=== PATIENT | male | born 1990 | race Caucasian/White ===

== ENCOUNTER → 2022-01-21 08:15 | Outpatient (CLI) | payer BC, SELFPAY ==
--- NOTE | ~2022-01-21 | US_ITS ---
EXAMINATION: US soft tissue head and neck DATE: 01/21/2022 08:34 INDICATION: Neck lump. TECHNIQUE: Multiple grayscale and Doppler ultrasound images of the neck were obtained. COMPARISON: None FINDINGS: There are normal lymph nodes in the neck bilaterally. IMPRESSION: 1. No abnormal neck mass or lymphadenopathy. Reviewed, dictated and finalized at location A. TER HAND
--- NOTE | ~2022-01-21 | XR_ITS ---
XR soft tissue neck 01/21/2022 08:40 Indication: Feels like there is a lump in the neck for 3 weeks. Procedure: 2 views of the neck soft tissues Comparison: No prior studies for comparison. Findings: Prevertebral soft tissues are normal. Epiglottis and area epiglottic folds are within maribeth l limits. No subglottic narrowing. Lung apices are unremarkable. No significant abnormality of the ce rvical spine. Impression: 1: No significant abnormality of the neck soft tissues identified. Reviewed, dictated and finalized at location A. CH OPERATIONS SPECIALIST Impression: 1: No significant abnormality of the neck soft tissues identified.
== END ==
PROVIDERS: PCP Nurse Practitioner Family; Visit Provider Nurse Practitioner Family
DX: R20.2 Paresthesia of skin (principal)
CPT/HCPCS: 70360; 76536

== ENCOUNTER → 2022-01-25 15:20 | Outpatient (CLI) | payer BC, SELFPAY ==
--- NOTE | ~2022-01-25 | US_ITS ---
Thyroid ultrasound. Clinical History: Neck fullness Findings: Real-time sonography of the thyroid gland was performed. The right lobe measures 6.5 x 2.0 x 1.4 cm. The left lobe measures 5.7 x 1.9 x 1.7 cm. The isthmus is 1-2 mm in AP diameter. Thyroid parenchyma is homogeneous. No thyroid nodule seen. Impression: Unremarkable exam. Reviewed, dictated and finalized at location [] CONNECTOR Impression: Unremarkable exam.
== END ==
PROVIDERS: PCP Nurse Practitioner Family; Visit Provider Nurse Practitioner Family
DX: R22.1 Localized swelling, mass and lump, neck (principal)
CPT/HCPCS: 76536

== ENCOUNTER 2022-01-28 01:00 | Observation (INO) | payer BC, SELFPAY ==
[2022-01-28] VITALS (47 sets, daily range): BP systolic 121–168; BP diastolic 56–98; PULSE 60–90; RESP 4–21; TEMP 36.3; O2SAT 94–100; BMI 28.5
--- NOTE | 2022-01-28 | ECHO_ITS ---
Patient Info Name: Austin Nesbitt Age: 31 years : 1990 Gender: Male Ht: 73 in Wt: 215 lbs BSA: 2.26 m2 HR: 75 bpm BP: 168 / 71 mmHg Heart Rhythm: Sinus Rhythm Technical Quality: Good Exam Date: 01/28/2022 8:07 AM Exam Location: [facility] Patient Status: Outpatient Admit Date: 01/28/2022 Staff Ordering Physician: Tiffanie Cannon MD Acls Specialist: Jacquelyn Painter RDCS Attending Provider: Jackelin Posadas DO Referring Physician: Davis BARRETO; Exam Type: CA echo doppler color flow Study Info Indications - elevated troponin Complete two-dimensional, color flow and Doppler transthoracic echocardiogram is performed. Summary 1. Complete two-dimensional, color flow and Doppler transthoracic echocardiogram is performed. 2. Unremarkable 2D/Doppler echocardiogram. Left Ventricle Left ventricular chamber dimension is normal. Left ventricular systolic function is normal, estimated at 65-70%. The left ventricular diastolic function is normal. Right Ventricle Right ventricular chamber dimension is normal. Left Atria Left atrial chamber dimension is normal. Right Atria Right atrial chamber dimension is normal. Aortic Valve The aortic valve is normal. Pulmonic Valve The pulmonic valve is normal. Mitral Valve The mitral valve has normal leaflets. Tricuspid Valve The tricuspid valve leaflets are normal. Pericardium/Pleural The pericardium appears normal. Aorta The aortic root size at the sinus of Valsalva is normal. Left Ventricular Outflow Tract Name Value Normal LVOT 2D LVOT Diameter 2.1 cm LVOT Doppler LVOT Peak Gradient 5 mmHg LVOT Mean Gradient 2 mmHg LVOT VTI 19 cm LVOT VTI/AV VTI Ratio 0.7 LVOT Stroke Volume 62 ml LVOT CO 4.3 l/min LVOT CI 1.9 l/min/m2 Pulmonic Valve Name Value Normal RVOT Doppler RVOT Peak Gradient 3 mmHg PV Doppler PV Peak Gradient 8 mmHg Mitral Valve Name Value Normal MV Doppler MV Decel Banner 629 cm/s2 MV PHT 52 ms MV Area (PHT) 4.2 cm2 4.0-5.0 MV Diastolic Function MV E Peak Velocity 113 cm/s MV
--- NOTE | ~2022-01-28 | CT_ITS ---
Clinical Indication: Pulmonary embolus, chest pain CT Scan of the Chest with Contrast: Technique: Contiguous sections were acquired throughout the chest after intravenous administration of 100 cc of Omnipaque 350. Dose reduction technique was used on this scan by utilizing automated expos ure control and iterative reconstruction technique. The dose-length product (DLP) was 580.08 mGy-cm. Findings: There are probable mildly enlarged subcarinal, AP window, and left hilar lymph nodes, nonspecific.. T here is no filling defect in the pulmonary arterial tree to suggest pulmonary embolus. There is no ev idence of aortic dissection or aneurysm. There is no evidence of pleural or pericardial effusion. The lungs are clear. No pulmonary nodules or infiltrates are noted. Images through the upper abdomen reveal no abnormalities. Impression: No evidence of pulmonary embolus, aortic dissection, or aortic aneurysm. Clear lungs. Mildly prominent subcarinal, AP window, and left hilar lymph nodes, nonspecific, and of uncertain cli nical significance. These could reflect inflammatory/reactive lymph nodes. Reviewed, dictated and finalized at location [] [facility] Impression: No evidence of pulmonary embolus, aortic dissection, or aortic aneurysm. Clear lungs. Mildly prominent subcarinal, AP window, and left hilar lymph nodes, nonspecific , and of uncertain clinical significance. These could reflect inflammatory/reac tive lymph nodes.
--- NOTE | 2022-01-28 01:05 | ECG_ITS ---
Measurements Intervals [place] Rate: 62 P: 52 KS: 221 QRS: 83 QRSD: 114 T: 27 QT: 399 QTc: 407 Interpretive Statements SINUS RHYTHM WITH FIRST DEGREE AV BLOCK POSSIBLE RIGHT VENTRICULAR CONDUCTION DELAY [RSR (QR) IN V1/V2] BORDERLINE ECG NO PREVIOUS ECG AVAILABLE FOR COMPARISON Electronically Signed On 01-31-2022 17:16:40 QUALITY CONTROL MICROBIOLOGY SUPERVISOR by Ozzy Quintanilla M.D.
--- NOTE | 2022-01-28 01:05 | ECG_ITS ---
Measurements Intervals [place] Rate: 65 P: 78 VT: 227 QRS: 79 QRSD: 117 T: 27 QT: 413 QTc: 430 Interpretive Statements SINUS RHYTHM WITH FIRST DEGREE AV BLOCK POSSIBLE LEFT ATRIAL ENLARGEMENT [-0.1mV P WAVE IN V1/V2] INCOMPLETE RIGHT BUNDLE BRANCH BLOCK [90+ ms QRS DURATION, TERMINAL R IN V1/V2, 40+ ms S IN I/aVL/V4/V5/V6] COMPARED TO ECG 01/28/2022 01:05:03 NO SIGNIFICANT CHANGES Electronically Signed On 02-01-2022 15:28:15 PROGRAMMER ANALYST by Darcy Briseno M.D.
--- NOTE | 2022-01-28 01:29 | ECG_ITS ---
Measurements Intervals [place] Rate: 71 P: 59 NE: 219 QRS: 80 QRSD: 121 T: 15 QT: 397 QTc: 432 Interpretive Statements SINUS RHYTHM WITH FIRST DEGREE AV BLOCK POSSIBLE RIGHT VENTRICULAR CONDUCTION DELAY [RSR (QR) IN V1/V2] NONSPECIFIC T-WAVE ABNORMALITY ABNORMAL ECG COMPARED TO ECG 01/28/2022 01:05:03 NO SIGNIFICANT CHANGES Electronically Signed On 02-01-2022 15:28:06 YOUTH CAREER SPECIALIST by Inder Navarrete M.D.
[2022-01-28 02:04] LABS: Basophils Absolute Auto 0.1 K/mm3 (0.0-0.1); Basophils Percent Auto 0.8 % (0.2-1.2); Eosinophils Absolute Auto 0.1 K/mm3 (0-0.3); Eosinophils Percent Auto 1.9 % (0-4.4); Hematocrit 41.2 % (42.0-52.0); Hemoglobin 13.9 g/dL (14.0-18.0); Immature Granulocyte Absolute 0.02 K/mm3 (0.00-0.031); Immature Granulocyte Percent A 0.3 % (0-0.5); Lymphocytes Absolute Auto 2.49 K/mm3 (0.9-3.2); Lymphocytes Percent Auto 38.8 % (18.3-44.2); Mean Corpuscular HGB Conc 33.7 g/dl (32-36); Mean Corpuscular Hemoglobin 30.4 pg (26-34); Mean Corpuscular Volume 90.2 fl (80-100); Mean Platelet Volume 9.8 fl (7.4-10.4); Monocytes Absolute Auto 0.6 K/mm3 (0.1-0.6); Monocytes Percent Auto 9.5 % (2.6-8.5); Neutrophils Absolute Auto 3.1 K/mm3 (1.3-6.7); Neutrophils Percent Auto 48.7 % (45.5-73.1); Platelet Count Result 181 k/mm3 (150-375); Red Blood Count 4.57 M/mm3 (4.6-6.20); Red Cell Distribution Width 12.7 % (11.5-14.5); White Blood Count 6.4 K/mm3 (4.5-10.0)
[2022-01-28 02:18] LABS: Prothrombin Time 13.1 Seconds (11.1-14.7)
[2022-01-28 03:18] LABS: Alanine Aminotransferase 16 U/L (6-50); Albumin Level 4.4 g/dL (3.5-5.1); Alkaline Phosphatase 49 U/L (38-126); Anion Gap 7 mmol/L (8-16); Aspartate Amino Transferase 39 U/L (17-59); Bilirubin,Total 0.6 mg/dL (0.2-1.3); Blood Urea Nitrogen 14 mg/dL (9-20); Carbon Dioxide 30 mmol/L (22-30); Chloride 99 mmol/L (98-107); Estimated Glomerular Filt Rate > 60; Glucose 93 mg/dL (65-110); Potassium 3.7 mmol/L (3.4-5.0); Sodium 136 mmol/L (137-145)
[2022-01-28 03:19] LABS: Troponin I 0.061 ng/mL (0.000-0.034)
--- NOTE | 2022-01-28 03:27 | PC.NURSE ---
Pt states he saw his PCP a few weeks ago d/t pain in his throat/neck. Pt to ED with c/o midsternal chest pain that shoots through to his back that started two days ago. He cannot identify any aggravating or alleviating factors. He denies cardiac history, does not smoke or use street drugs, but states he takes pre-workout 4 times a week. Skin is warm and dry. He denies nausea. He reports occasional shortness of breath with normal daily activities.
--- NOTE | 2022-01-28 03:54 | ED.CHESTPAIN ---
HPI - Chest Pain General Chief Complaint: Chest Pain Stated Complaint: chest pain rt arm numb Time Seen by Provider: 01/28/22 03:38 Source: patient Mode of arrival: ambulatory Limitations: no limitations History of Present Illness HPI narrative: Patient is a 31-year-old male with a history of anxiety presenting to the emergency department for evaluation of chest pain. Patient reports aching chest pain in the center of the chest with radiation to the back. Patient states that pain has been present over the past 48 hours. It did worsen this evening which is what prompted his visit. Patient states significant stress and anxiety with several panic attacks this week. Patient denies any cough, hemoptysis or shortness of breath. He denies associated lightheadedness or dizziness. He reports a general discomfort in his neck for which she was seen by his primary care physician and had a thyroid ultrasound which was ordered that was normal. Patient denies recent fever, chills, cough, URI symptoms. He denies leg swelling or calf pain. No history of coagulopathy. Denies recent long car or air travel. He denies any history of sudden cardiac in the family or VT at an early age. Patient has no history of hypertension, dyslipidemia. Related Data Home Medications Medication Instructions Recorded Confirmed esomeprazole magnesium 20 mg 20 mg PO DAILY 01/03/19 capsule,delayed release loratadine 10 mg tablet (Claritin) mg 01/03/19 Allergies Allergy/AdvReac Type Severity Reaction Status Date / Time Penicillins Allergy Rash Verified 01/03/19 18:50 Review of Systems Review of Systems: CONSTITUTIONAL: Denies fever, chills, or sweats. EYES: Denies visual changes, redness, or discharge. ENT: Denies rhinorrhea, congestion, sore throat, or otalgia. CARDIOVASCULAR: Reports chest pain, denies palpitations or edema RESPIRATORY: Denies cough or dyspnea. GASTROINTESTINAL: Denies abdominal pain, nausea, vomiting, or diarrhea. GENITOURINARY: Denies dysuria or hematuria. SKIN: Denies rash or itching. MUSCULOSKELETAL: Denies back pain, joint pain, or myalgia. NEUROLOGIC: Denies headache, numbness, or weakness. [facility] Past Medical History Medical History (Updated 01/28/22 @ 06:06 by Tiffanie Cannon MD) Anxiety GERD (gastroesophageal reflux disease) Surgical History Surgical History No history of previous surgery Social History Social History Smoking status: Never smoker Exam Narrative: GENERAL: Awake, alert, conversant HEAD: Normocephalic, atraumatic. EYES: PERRLA and EOMI. ENT: Nares clear, no rhinorrhea or epistaxis. Mucous membranes moist. NECK: Supple. CHEST: No respiratory distress, breathing even and non labored, mild chest wall tenderness HEART: Regular rate, sinus rhythm ABDOMEN:Non distended, non tender EXTREMITIES: Normal range of motion. No edema. : Penile shaft is normal. Glans is normal without discharge. No vesicles or lesions. No scrotal erythema, edema. Pelvis: Right inguinal lymph node that is palpable, mildly tender, no induration or erythema. [place]. Scattered lesions that are maculopapular in nature concentrated to a 4 cm area medial right proximal thigh area. Nontender, no induration, no blistering or vesicles. No weeping. SKIN: Warm, dry, no rash. NEURO:No focal deficits. Alert and oriented x3 Course Vital Signs Vital signs: Vital Signs Temperature 36.3 C L 01/28/22 01:41 Pulse Rate 78 01/28/22 01:41 Respiratory Rate 16 01/28/22 01:41 Blood Pressure 159/98 H 01/28/22 01:41 Pulse Oximetry 100 01/28/22 01:41 Oxygen Delivery Room Air 01/28/22 01:41 Temperature 36.3 C L 01/28/22 01:41 Pulse Rate 75 01/28/22 04:27 Respiratory Rate 15 01/28/22 04:27 Blood Pressure 168/71 H 01/28/22 04:27 Pulse Oximetry 100 01/28/22 04:27 Oxygen Delivery Room
[2022-01-28] MEDS: ONDANSETRON INJ 4 MG/2 ML VIAL IV PUSH (04:26)
[2022-01-28] MEDS: NITROGLYCERIN SL 0.4 MG TABLET SUBLINGUAL (04:31)
--- NOTE | 2022-01-28 04:41 | PC.NURSE ---
While administering IV morphine, pt c/o increased chest pain and feeling like his heart was racing. EKG performed and given to ER MD. Morphine held per pt request. Increased pain and feeling of heart racing has resolved at this time.
[2022-01-28] MEDS: LACTATED RINGERS 1,000 ML 125 ML IV CONT ×2 (05:21→12:56)
[2022-01-28] MEDS: ASPIRIN 81 MG CHEWABLE TABLET 324 MG PO (05:21)
[2022-01-28 05:35] LABS: Add Urine Microscopic? NO; Appearance Urine Clear (Clear); Bilirubin Urine Negative (Negative); Blood Urine Negative (Negative); Color Urine Light Yellow (Yellow); Glucose Urine UA Negative (Negative); Ketones Urine Negative (Negative); Leukocyte Esterase Ur Negative LEU/UL (Negative); Nitrate Urine Negative (Negative); Protein Urine Negative (Negative); Specific Grav Ur <= 1.005 (1.001-1.035); Urobilinogen Urine 0.2 mg/dL (<2.0)
[2022-01-28 05:52] LABS: Amphetamine Screen Urine Negative (Negative); Barbiturate Screen Urine Negative (Negative); Benzodiazepines Screen Urine Negative (Negative); Cannabinoid Screen Urine Negative (Negative); Cocaine Screen Urine Negative (Negative); Methadone Screen Urine Negative (Negative); Opiate Screen Urine Negative (Negative); Phencyclidine Screen Urine Negative (Negative)
[2022-01-28 05:54] LABS: NT Pro B Type Natriuretic Pept 27 pg/mL (5-100)
[2022-01-28] MEDS: LORazepam (*CRX) 0.5 MG TABLET PO (05:58)
[2022-01-28 06:18] LABS: Influenza A QL RT-PCR Negative (Negative); Influenza B QL RT-PCR Negative (Negative); SARS-CoV-2 RNA PCR Negative
[2022-01-28 06:51] LABS: Troponin I 0.099 ng/mL (0.000-0.034)
[2022-01-28] MEDS: ENOXAPARIN 100 MG/ML SYRINGE SUB-Q (07:05)
--- NOTE | 2022-01-28 07:18 | PC.NURSE ---
Nurse report given to Edi WELLINGTON
--- NOTE | 2022-01-28 08:44 | PM.CNCAR ---
History of Present Illness History of Present Illness Consult date/time: 01/28/22 08:44 Requesting physician: Tiffanie Cannon MD Consult reason: chest pain and Other (elevated troponin ) Reason For Visit: Atypical Chest Pain, Elevated Troponin PMFSH Past Medical History Medical History (Updated 01/28/22 @ 06:06 by Tiffanie Cannon MD) Anxiety GERD (gastroesophageal reflux disease) Surgical History Surgical History No history of previous surgery Social History Social History Smoking status: Never smoker Meds Home Medications and Allergies Home Medications Medication Instructions Recorded Confirmed Type esomeprazole magnesium 20 mg 20 mg PO DAILY 01/03/19 History capsule,delayed release ibuprofen 600 mg tablet (IBU) 600 mg PO Q6H PRN pain #20 tabs 01/03/19 Rx loratadine 10 mg tablet (Claritin) mg 01/03/19 History ondansetron 4 mg disintegrating 4 mg PO Q6H PRN nausea and 01/03/19 Rx tablet vomiting #10 tabs Allergies Allergy/AdvReac Type Severity Reaction Status Date / Time Penicillins Allergy Rash Verified 01/03/19 18:50 Vital Signs Vital Signs - 24 hr 01/28/22 01:41 01/28/22 03:31 01/28/22 03:28 Temperature 36.3 C L Pulse Rate 78 67 60 Respiratory Rate 16 15 Blood Pressure 159/98 H Pulse Oximetry 100 100 Oxygen Delivery Room Air 01/28/22 03:30 01/28/22 03:46 01/28/22 04:01 Temperature Pulse Rate 66 88 76 Respiratory Rate 12 21 H 18 Blood Pressure 138/97 H 152/92 H 155/87 H Pulse Oximetry 100 100 100 Oxygen Delivery 01/28/22 04:27 01/28/22 06:00 01/28/22 06:01 Temperature Pulse Rate 75 84 84 Respiratory Rate 15 16 Blood Pressure 168/71 H 135/78 Pulse Oximetry 100 100 100 Oxygen Delivery 01/28/22 06:31 01/28/22 06:46 01/28/22 07:01 Temperature Pulse Rate 80 79 77 Respiratory Rate 16 18 18 Blood Pressure 122/65 125/66 121/64 Pulse Oximetry 99 99 99 Oxygen Delivery Results Labs and Meds 01/28/22 01:30 01/28/22 01:30 Lab results: Cardiac Enzymes 01/28/22 01/28/22 Range/Units 01:30 06:08 AST 39 (17-59) U/L Troponin I 0.061 H* 0.099 H* D (0.000-0.034) ng/mL Coagulation 01/28/22 Range/Units 01:30 PT 13.1 (11.1-14.7) Seconds CBC 01/28/22 Range/Units 01:30 WBC 6.4 (4.5-10.0) K/mm3 RBC 4.57 L (4.6-6.20) M/mm3 Hgb 13.9 L (14.0-18.0) g/dL Hct 41.2 L (42.0-52.0) % Plt Count 181 (150-375) k/mm3 Lymph # (Auto) 2.49 (0.9-3.2) K/mm3 [place] # (Auto) 0.6 (0.1-0.6) K/mm3 Eos # (Auto) 0.1 (0-0.3) K/mm3 Baso # (Auto) 0.1 (0.0-0.1) K/mm3 Comprehensive Metabolic Panel 01/28/22 Range/Units 01:30 Sodium 136 L (137-145) mmol/L Potassium 3.7 (3.4-5.0) mmol/L Chloride 99 (98-107) mmol/L Carbon Dioxide 30 (22-30) mmol/L BUN 14 D (9-20) mg/dL Creatinine 0.90 (0.7-1.3) mg/dL Glucose 93 (65-110) mg/dL Calcium 9.0 (8.4-10.2) mg/dL AST 39 (17-59) U/L ALT 16 (6-50) U/L Alkaline Phosphatase 49 (38-126) U/L Total Protein 7.0 (6.3-8.2) g/dL Albumin 4.4 (3.5-5.1) g/dL Patient Weight 01/28/22 23:59 Weight 101.5 kg
--- NOTE | 2022-01-28 08:59 | PM.IMHP ---
H&P: HPI History of Present Illness Date/Time: 01/28/22 08:59 Chief Complaint: Chest pain Narrative: Mr. Nesbitt is a 31-year-old male with A history of gastro oesophageal reflux disease on omeprazole for many years. This is a patient who presents to the emergency department with a chief complaint of chest pain. He had been having pain in his neck for the past couple of weeks and had undergone some workup by his primary care doctor including thyroid ultrasound, head and neck ultrasound, and soft tissue neck x-ray which were all negative. Over the past 48 hours the location of the pain migrated down towards patient's retrosternal area And intensified in severity. He describes the pain as a stabbing and sharp with radiation to his back. Yesterday, he felt well enough to go to the gym and ran on the treadmill. Did not notice worsening chest pain with this activity. When he attempted to lay down to go to sleep last night his chest pain intensified. It was relieved by him standing up from a lying position. The patient states that at its worst, pain was a 7 or 8. States that his pain is exacerbated by taking deep breaths. Recent flu vaccination but reports no recent viral infections. Currently, he has some mild chest discomfort but generally is comfortable. Review of Systems Constitutional: Constitutional: Denies chills, Denies fever(s), Denies headache(s) and Denies malaise Eyes: Eyes: Denies change in vision ENT: Reports Normal hearing present, Denies dizziness, Denies headache(s) and Denies hearing loss Cardiovascular: Cardiovascular: Denies chest pain with activity, Denies syncope, Denies leg edema, Denies palpitations, Denies dyspnea and Denies dyspnea on exertion Respiratory: Respiratory: Denies cough, Denies dyspnea, Denies dyspnea on exertion and Denies wheezing Gastrointestinal: Gastrointestinal: Denies abdominal pain, Denies constipation and Denies diarrhea Genitourinary: Genitourinary: Denies hematuria and Denies dysuria Musculoskeletal: Musculoskeletal: Denies myalgias, Denies arthralgias and Denies muscle cramps Integumentary/Breasts: Skin/Breast: Denies wounds Neurologic: Reports Normal hearing present, Denies confusion, Denies dizziness, Denies syncope and Denies headache(s) Psychiatric: Psychiatric: Denies anxiety, Denies confusion and Denies depression Endocrine: Endocrine: Denies cold intolerance, Denies flushing, Denies heat intolerance and Denies palpitations Hematologic/Lymphatic: Hematologic/Lymphatic: Denies easy bleeding and Denies easy bruising Allergic/Immunologic: Allergic/Immunologic: Denies wheezing PMFSH Past Medical History Medical History Anxiety GERD (gastroesophageal reflux disease) Surgical History Surgical History No history of previous surgery Social History Social History Smoking status: Never smoker Alcohol intake: current Drinks per week: 3 Substance use type: does not use Lack of Transportation: No Lack of Food: Never True Current Housing: I Have Housing Concerned About Future Housing: No Difficulty Paying Gas/Electric Bills: No Difficulty Paying for Meds: No Currently Unemployed: No Education: Bachelor's Degree Difficulty w/ Childcare or Family Care: No Spiritual care concerns: No Meds Home Medications and Allergies Home Medications Medication Instructions Recorded Confirmed Type esomeprazole magnesium 20 mg 20 mg PO DAILY 01/03/19 01/28/22 History capsule,delayed release ibuprofen 600 mg tablet (IBU) 600 mg PO Q6H PRN pain #20 tabs 01/03/19 01/28/22 Rx loratadine 10 mg tablet (Claritin) 10 mg PO PRN allergies 01/03/19 01/28/22 History ondansetron 4 mg disintegrating 4 mg PO Q6H PRN nausea and 01/03/19 01/28/22 Rx tablet vomiting #10 tabs cyclobenza
[2022-01-28 09:13] LABS: Troponin I 0.085 ng/mL (0.000-0.034)
[2022-01-28 10:11] LABS: Erythrocyte Sedimentation Rate 1 mm/hr (0-20)
[2022-01-28 10:15] LABS: CRP 1.1 mg/dL (<1.0)
[2022-01-28] MEDS: COLCHICINE 0.6 MG TABLET PO (14:10)
--- NOTE | 2022-01-28 14:36 | PM.SD2 ---
Same Day Admit/Disch: HPI History of Present Illness Chief complaint: Atypical Chest Pain, Elevated Troponin Narrative: Mr. Nesbitt is a 31-year-old male with A history of gastro oesophageal reflux disease on omeprazole for many years. This is a patient who presents to the emergency department with a chief complaint of chest pain. He had been having pain in his neck for the past couple of weeks and had undergone some workup by his primary care doctor including thyroid ultrasound, head and neck ultrasound, and soft tissue neck x-ray which were all negative. Over the past 48 hours the location of the pain migrated down towards patient's retrosternal area And intensified in severity. He describes the pain as a stabbing and sharp with radiation to his back. Yesterday, he felt well enough to go to the gym and ran on the treadmill. Did not notice worsening chest pain with this activity. When he attempted to lay down to go to sleep last night his chest pain intensified. It was relieved by him standing up from a lying position. The patient states that at its worst, pain was a 7 or 8. States that his pain is exacerbated by taking deep breaths. Recent flu vaccination but reports no recent viral infections. Currently, he has some mild chest discomfort but generally is comfortable. [facility] Past Medical History Medical History Anxiety GERD (gastroesophageal reflux disease) Surgical History Surgical History No history of previous surgery Social History Social History Smoking status: Never smoker Alcohol intake: current Drinks per week: 3 Substance use type: does not use Lack of Transportation: No Lack of Food: Never True Current Housing: I Have Housing Concerned About Future Housing: No Difficulty Paying Gas/Electric Bills: No Difficulty Paying for Meds: No Currently Unemployed: No Education: Bachelor's Degree Difficulty w/ Childcare or Family Care: No Spiritual care concerns: No Same Day Admit/Disch: Med Pre-admit Medications Home Medications Medication Instructions Recorded Confirmed Type esomeprazole magnesium 20 mg 20 mg PO DAILY 01/03/19 01/28/22 History capsule,delayed release loratadine 10 mg tablet (Claritin) 10 mg PO PRN allergies 01/03/19 01/28/22 History ondansetron 4 mg disintegrating 4 mg PO Q6H PRN nausea and 01/03/19 01/28/22 Rx tablet vomiting #10 tabs colchicine 0.6 mg tablet 0.6 mg PO BID #60 tabs 01/28/22 Rx cyclobenzaprine 10 mg tablet mg 01/28/22 History famotidine-Ca carb-mag hydrox 10 1 tablet PO HS PRN Acid Reflux 01/28/22 01/28/22 History mg-800 mg-165 mg chewable tablet (Pepcid Complete) hydroxyzine HCl 25 mg tablet mg 01/28/22 01/28/22 History Exam Const: General: comfortable, no acute distress, alert and awake; No confusion Orientation/consciousness: patient oriented x3 and No confusion HENMT: Head: normal to inspection Eyes: General: appearance normal, both eyes and all related structures Pupils: Equal, round and reactive pupils present Neck: Neck: normal visual inspection, supple and no JVD Carotids: normal carotid upstroke Resp: Effort & Inspection: normal respiratory effort Auscultation: clear to auscultation bilaterally Cardio: Rate: regular rate Rhythm: regular rhythm Heart sounds: S1 normal heart sound present, S2 normal heart sound present and no murmurs GI: Auscultation: normal bowel sounds Skin: General skin exam: normal color Neuro: General: patient oriented x3 and No confusion Cranial nerves: Yes Equal, round and reactive pupils present and Yes Normal hearing present Extrem: General: normal to inspection Psych: Appearance: grossly normal Mental Status: mental status grossly normal DS: Data Data Completed and Pending Labs on day of discharge: Labs fro
--- NOTE | 2022-01-28 15:35 | PC.NURSE ---
has d/c orders from cardiology; ED RNs unable to access discharge packet. Call Care CoordinationRashad for assistance. He will call back.
--- NOTE | 2022-01-28 15:45 | PC.NURSE ---
Called Dane Barton since pt. was admitted last night and has been boarded in ED whole LOS. Oralia said she is not net application architect and doesn't matter; 12-12 provider will see pt.
--- NOTE | 2022-01-28 16:02 | PM.IMPN ---
Progress Note: A&P Assessment and Plan (1) Pericarditis: Code(s): I31.9 - Disease of pericardium, unspecified Status: Acute Assessment and Plan: Cardiology consult, 2D echo (2) GERD (gastroesophageal reflux disease): Code(s): K21.9 - Gastro-esophageal reflux disease without esophagitis Status: Acute Assessment and Plan: continue home meds. (3) Atypical chest pain: Code(s): R07.89 - Other chest pain Status: Acute Assessment and Plan: Trend troponin, check Ekg and cardio eval. Subjective Date/time seen: 01/28/22 16:02 Patient was seen in morning during the rounds today. Patient is pain-free now. no shortness of breath or chest pain. Abdominal pain, nausea vomiting. Mood stable. Review of Systems Review of Systems: All systems reviewed & are unremarkable except as noted in HPI and below ( the history and physical examination.) Exam Narrative: Const:?? General: comfortab le, no acute distr ess, alert and natalia ke? Orientation/co nsciousness: patie nt oriented x3 HENMT:?? Head: normal to in spection Eyes:?? General: appearanc e normal, both eye s and all related structures? Pupils : Equal, round and reactive pupils p resent Neck:?? Neck: normal visua l inspection, supp le and no JVD? Car otids: normal sifuentes tid upstroke Resp:?? Effort & Inspectio n: normal respirat ory effort? Auscul tation: clear to a uscultation bilate rally Cardio:?? Rate: regular rate ? Rhythm: regular rhythm? Heart soun ds: S1 normal hear t sound present, S 2 normal heart germán nd present and no murmurs GI:?? Auscultation: norm al bowel sounds Skin:?? General skin exam: normal color Neuro:?? General: patient o riented x3? Crania l nerves: Yes Equa l, round and react jacki pupils present Extrem:?? General: normal to inspection Psych:?? Appearance: grossl y normal? Mental S tatus: mental stat us grossly normal Objective Data Vital Signs Vital Signs: Vital Signs - 24 hr 01/28/22 01:41 01/28/22 03:31 01/28/22 03:28 Temperature 36.3 C L Pulse Rate 78 67 60 Respiratory Rate 16 15 Blood Pressure 159/98 H Pulse Oximetry 100 100 Oxygen Delivery Room Air 01/28/22 03:30 01/28/22 03:46 01/28/22 04:01 Temperature Pulse Rate 66 88 76 Respiratory Rate 12 21 H 18 Blood Pressure 138/97 H 152/92 H 155/87 H Pulse Oximetry 100 100 100 Oxygen Delivery 01/28/22 04:27 01/28/22 06:00 01/28/22 06:01 Temperature Pulse Rate 75 84 84 Respiratory Rate 15 16 Blood Pressure 168/71 H 135/78 Pulse Oximetry 100 100 100 Oxygen Delivery 01/28/22 06:31 01/28/22 06:46 01/28/22 07:01 Temperature Pulse Rate 80 79 77 Respiratory Rate 16 18 18 Blood Pressure 122/65 125/66 121/64 Pulse Oximetry 99 99 99 Oxygen Delivery 01/28/22 07:04 01/28/22 07:19 01/28/22 07:51 Temperature Pulse Rate 84 78 78 Respiratory Rate 12 12 Blood Pressure Pulse Oximetry 100 100 Oxygen Delivery 01/28/22 08:11 01/28/22 08:16 01/28/22 08:17 Temperature Pulse Rate 75 79 78 Respiratory Rate 4 L
--- NOTE | 2022-01-28 16:53 | PC.NURSE ---
heart healthy diet dinner tray ordered
--- NOTE | 2022-01-31 16:36 | PM.DS ---
DS: Admitting Diagnosis Discharge Date 01/28/22 Admitting Diagnosis chest pain DS: Discharge Diagnosis Discharge Diagnosis (1) Pericarditis: Code(s): I31.9 - Disease of pericardium, unspecified Status: Acute Assessment and Plan: Cardiology consult, 2D echo (2) GERD (gastroesophageal reflux disease): Code(s): K21.9 - Gastro-esophageal reflux disease without esophagitis Status: Acute Assessment and Plan: continue home meds. (3) Atypical chest pain: Code(s): R07.89 - Other chest pain Status: Acute Assessment and Plan: Trend troponin, check Ekg and cardio eval. DS: Summary Hospital Course Reason for hospitalization: chest pain Hospital Course: patient was admitted with chest pain, cardiology was consulted. Patient was diagnosed with possible pericarditis. Antiinflammatory were started. patient was discharged in stable condition. Out patient follow up scheduled. Status at Discharge Cognitive/behavioral status at discharge: Stable Time Spent with Patient Time attestation: Total time spent providing and/or coordinating discharge services: Exam Narrative: Const:?? General: comfortab le, no acute distr ess, alert and natalia ke? Orientation/co nsciousness: patie nt oriented x3 HENMT:?? Head: normal to in spection Eyes:?? General: appearanc e normal, both eye s and all related structures? Pupils : Equal, round and reactive pupils p resent Neck:?? Neck: normal visua l inspection, supp le and no JVD? Car otids: normal sifuentes tid upstroke Resp:?? Effort & Inspectio n: normal respirat ory effort? Auscul tation: clear to a uscultation bilate rally Cardio:?? Rate: regular rate ? Rhythm: regular rhythm? Heart soun ds: S1 normal hear t sound present, S 2 normal heart germán nd present and no murmurs GI:?? Auscultation: norm al bowel sounds Skin:?? General skin exam: normal color Neuro:?? General: patient o riented x3? Crania l nerves: Yes Equa l, round and react jacki pupils present Extrem:?? General: normal to inspection Psych:?? Appearance: grossl y normal? Mental S tatus: mental stat us grossly normal Discharge Plan Discharge Attending physician on discharge: Jarrell Decker Consulting providers: Jenny Wise ; Ozzy Quintanilla ; Slade Estes Discharging Clinician: Jenny Wise Anticipated Discharge Date/Time: 01/28/22 16:39 Patient Disposition: Home, Self-Care Activity: june shower Diet: regular Patient Instructions: Antibiotic Form, Colchicine (By mouth), Acute Pericarditis (DC), Acute Pericarditis (GEN) Stand Alone Forms: General Discharge Information Follow-up/Referrals: Jenny Wise, [facility] [Advanced Practice Nurse] - (02/16/22 at 9:00. Arrive at 8:45.) Discharge Medications: New colchicine 0.6 mg tablet 0.6 mg PO BID Qty: 60 2RF Continued loratadine [Claritin] 10 mg Tablet 10 mg PO PRN esomeprazole magnesium 20 mg Capsule,Delayed Release(Dr/Ec) 20 mg PO DAILY ondansetron 4 mg tablet,disintegrating 4 mg PO Q6H PRN (Reason: izabela
== END 2022-01-28 05:13 | disposition home or self-care (01) ==
LOC: ANHED 05:05 → ANHIMU 06:06
PROVIDERS: Nurse Practitioner; Admitting Provider Internal Medicine; Emergency Provider Emergency Medicine; PCP Nurse Practitioner Family; Visit Provider Internal Medicine
DX: I31.9 Disease of pericardium, unspecified (principal); K21.9 Gastro-esophageal reflux disease without esophagitis; R07.89 Other chest pain; R77.8 Other specified abnormalities of plasma proteins; R59.0 Localized enlarged lymph nodes; R03.0 Elevated blood-pressure reading, without diagnosis of hypertension; M54.2 Cervicalgia; I44.0 Atrioventricular block, first degree; Z20.822 Contact with and (suspected) exposure to COVID-19; F41.9 Anxiety disorder, unspecified; F43.9 Reaction to severe stress, unspecified; F41.0 Panic disorder [episodic paroxysmal anxiety]; F10.90 Alcohol use, unspecified, uncomplicated; Z79.1 Long term (current) use of non-steroidal anti-inflammatories (NSAID); Z87.09 Personal history of other diseases of the respiratory system; Z79.899 Other long term (current) drug therapy
CPT/HCPCS: 36415; 71275; 80053; 80307; 81003; 83880; 84484; 85025; 85610; 85652; 86140; 87491; 87591; 87636; 93005; 93306; 96361; 96372; 96374; 99285; A9270; G0378; J1650; J2270; J2405; J7120; Q9967

== ENCOUNTER → 2022-03-03 14:12 | Outpatient (CLI) | payer BC, SELFPAY ==
--- NOTE | ~2022-03-03 | MR_ITS ---
EXAMINATION: MR brain/brain stem wo con DATE: 03/03/2022 14:43 INDICATION: New daily persistent headache. TECHNIQUE: Magnetic resonance imaging (MRI) of the brain and brainstem was performed without intraven ous contrast. COMPARISON: None. FINDINGS: There is no intracranial hemorrhage, acute infarction, or abnormal intracranial mass lesion . The ventricles are normal in size. The paranasal sinuses are clear. The orbits are normal. The mast oid air cells are normal. IMPRESSION: 1. Normal brain. Reviewed, dictated and finalized at location A. R HELPER IMPRESSION: 1. Normal brain.
== END ==
PROVIDERS: PCP Nurse Practitioner Family; Visit Provider Nurse Practitioner Family
DX: G44.52 New daily persistent headache (NDPH) (principal)
CPT/HCPCS: 70551

== ENCOUNTER 2022-04-06 02:10 | Day surgery (SDC) | payer BC, SELFPAY ==
[2022-03-31 10:44] VITALS: BMI 28.3
[2022-04-06 12:06] VITALS: BP 134/75; PULSE 78; TEMP 36.4; O2SAT 99
[2022-04-06] MEDS: LACTATED RINGERS 1,000 ML 150 ML IV CONT (12:18)
--- NOTE | 2022-04-06 12:24 | P.PNAN_ITS ---
Anes - Initial Pre Proc Eval Procedure: Operation Date: 04/06/22 13:15 Proposed Procedures p Esophagogastroduodenoscopy - Shiva Hutchison MD Date/Time: 04/06/22 12:24 Surgeon: Shiva Hutchison MD Pre Op Diagnosis: GERD Patient Data Age: 31 Gender: M Height: 1.85 m Weight: 93.7 kg Last Vital Signs Temp 97.5 F L 04/06/22 12:06 Pulse 78 04/06/22 12:06 BP 134/75 04/06/22 12:06 Pulse Ox 99 04/06/22 12:06 O2 Del Method Room Air 04/06/22 12:06 Allergies Allergy/AdvReac Type Severity Reaction Status Date / Time Penicillins Allergy Intermediate Rash Verified 04/06/22 12:05 Home Medications Medication Instructions Recorded Confirmed Type esomeprazole magnesium 20 mg 20 mg PO DAILY 01/03/19 03/31/22 History capsule,delayed release colchicine 0.6 mg tablet 0.6 mg PO BID #60 tabs 01/28/22 04/06/22 Rx famotidine-Ca carb-mag hydrox 10 1 tablet PO HS 01/28/22 03/31/22 History mg-800 mg-165 mg chewable tablet (Pepcid Complete) hydroxyzine HCl 25 mg tablet 25 mg PO HS 01/28/22 03/31/22 History escitalopram oxalate 10 mg tablet 10 mg PO DAILY 03/31/22 03/31/22 History Patient hx anesthesia problems: none Family hx anesthesia problems: none Results Review: All pre-operative results and documents have been reviewed as part of the pre- operative evaluation. [facility] Past Medical History Medical History Anxiety GERD (gastroesophageal reflux disease) Surgical History Surgical History No history of previous surgery Social History Social History Smoking status: Never smoker Alcohol intake: current Drinks per week: 3 Substance use: never Substance use type: does not use Lack of Transportation: No Lack of Food: Never True Current Housing: I Have Housing Concerned About Future Housing: No Difficulty Paying Gas/Electric Bills: No Difficulty Paying for Meds: No Currently Unemployed: No Education: Bachelor's Degree Difficulty w/ Childcare or Family Care: No Living arrangements: with family Spiritual care concerns: No Anes - Eval Final PreProcedure Day of Procedure 04/06/22 12:24 Patient weight: normal Heart: regular rate and rhythm Lungs: clear to auscultation Airway: Mallampati scale class II Neurological: alert and oriented Last oral intake: >/= 8 hours ASA classification: II Emergent: no Anesthetic plan: proceed Anesthesia type and monitoring: general GIVS and standard monitoring Results Review: All pre-operative results and documents have been reviewed as part of the pre- operative evaluation. Informed Consent: The patient's anesthetic plan and its attendant risks and benefits were discussed with the patient/family/POA. Questions were solicited and answers provided to the satisfaction of the patient/family/POA.
--- NOTE | 2022-04-06 12:29 | WPDANESEPPF ---
Anes - Initial Pre Proc Eval Procedure: Operation Date: 04/06/22 13:15 Proposed Procedures p Esophagogastroduodenoscopy - Shiva Hutchison MD Date/Time: 04/06/22 12:29 Surgeon: Shiva Hutchison MD Pre Op Diagnosis: GERD Patient Data Age: 31 Gender: M Height: 1.85 m Weight: 93.7 kg Last Vital Signs Temp 97.5 F L 04/06/22 12:06 Pulse 78 04/06/22 12:06 BP 134/75 04/06/22 12:06 Pulse Ox 99 04/06/22 12:06 O2 Del Method Room Air 04/06/22 12:06 Allergies Allergy/AdvReac Type Severity Reaction Status Date / Time Penicillins Allergy Intermediate Rash Verified 04/06/22 12:05 Home Medications Medication Instructions Recorded Confirmed Type esomeprazole magnesium 20 mg 20 mg PO DAILY 01/03/19 03/31/22 History capsule,delayed release colchicine 0.6 mg tablet 0.6 mg PO BID #60 tabs 01/28/22 04/06/22 Rx famotidine-Ca carb-mag hydrox 10 1 tablet PO HS 01/28/22 03/31/22 History mg-800 mg-165 mg chewable tablet (Pepcid Complete) hydroxyzine HCl 25 mg tablet 25 mg PO HS 01/28/22 03/31/22 History escitalopram oxalate 10 mg tablet 10 mg PO DAILY 03/31/22 03/31/22 History Patient hx anesthesia problems: none Family hx anesthesia problems: none Results Review: All pre-operative results and documents have been reviewed as part of the pre-operative evaluation. [facility] Past Medical History Medical History Anxiety GERD (gastroesophageal reflux disease) Surgical History Surgical History No history of previous surgery Social History Social History Smoking status: Never smoker Alcohol intake: current Drinks per week: 3 Substance use: never Substance use type: does not use Lack of Transportation: No Lack of Food: Never True Current Housing: I Have Housing Concerned About Future Housing: No Difficulty Paying Gas/Electric Bills: No Difficulty Paying for Meds: No Currently Unemployed: No Education: Bachelor's Degree Difficulty w/ Childcare or Family Care: No Living arrangements: with family Spiritual care concerns: No Anes - Eval Final PreProcedure Day of Procedure 04/06/22 12:29 Patient weight: normal Heart: regular rate and rhythm Lungs: clear to auscultation Airway: Mallampati scale class II Neurological: alert and oriented Last oral intake: >/= 8 hours ASA classification: II Emergent: no Anesthetic plan: proceed Anesthesia type and monitoring: general GIVS and standard monitoring Results Review: All pre-operative results and documents have been reviewed as part of the pre-operative evaluation. Informed Consent: The patient's anesthetic plan and its attendant risks and benefits were discussed with the patient/family/POA. Questions were solicited and answers provided to the satisfaction of the patient/family/POA.
--- NOTE | 2022-04-06 13:34 | PM.HPGS ---
History of Present Illness History of Present Illness Consent: Risks, benefits, and alternatives have been discussed and questions answered. Patient agrees to proceed with procedure. Chief complaint: GERD Narrative: Austin Nesbitt is a 31 year old male With here for investigation of acid reflux. He actually was hospitalized recently when he had developed pain in his chest radiating to the back. He still gets these episodes. He will have pain throughout the chest for a day or to continuously and then will be gone for couple of days. He had also noted that his pain was worse when lying down and better when sitting up. It was thought that he might have pericarditis but there was no definiteevidence of it. he has been dealing with acid reflux for many many years and has always been on Nexium or similar product. He denies dysphagia. His weight is stable. Review of Systems Review of Systems: All systems reviewed & are unremarkable except as noted in HPI and below PMFSH Past Medical History Medical History Anxiety GERD (gastroesophageal reflux disease) Surgical History Surgical History No history of previous surgery Social History Social History Smoking status: Never smoker Alcohol intake: current Drinks per week: 3 Substance use: never Substance use type: does not use Lack of Transportation: No Lack of Food: Never True Current Housing: I Have Housing Concerned About Future Housing: No Difficulty Paying Gas/Electric Bills: No Difficulty Paying for Meds: No Currently Unemployed: No Education: Bachelor's Degree Difficulty w/ Childcare or Family Care: No Living arrangements: with family Spiritual care concerns: No Meds Home Medications and Allergies Home Medications Medication Instructions Recorded Confirmed Type esomeprazole magnesium 20 mg 20 mg PO DAILY 01/03/19 03/31/22 History capsule,delayed release colchicine 0.6 mg tablet 0.6 mg PO BID #60 tabs 01/28/22 04/06/22 Rx famotidine-Ca carb-mag hydrox 10 1 tablet PO HS 01/28/22 03/31/22 History mg-800 mg-165 mg chewable tablet (Pepcid Complete) hydroxyzine HCl 25 mg tablet 25 mg PO HS 01/28/22 03/31/22 History escitalopram oxalate 10 mg tablet 10 mg PO DAILY 03/31/22 03/31/22 History Allergies Allergy/AdvReac Type Severity Reaction Status Date / Time Penicillins Allergy Intermediate Rash Verified 04/06/22 12:05 Vital Signs Vital Signs - 24 hr 04/06/22 12:06 Temperature 36.4 C L Pulse Rate 78 Blood Pressure 134/75 Pulse Oximetry 99 Oxygen Delivery Room Air Exam Const: General: alert Orientation/consciousness: patient oriented x3 Resp: Auscultation: clear to auscultation bilaterally Cardio: Rhythm: regular rhythm GI: GI Palp: Yes Soft to palpation and No Tenderness to palpation present (GI) Neuro: General: patient oriented x3 Assessment and Plan Assessment and plan (1) Atypical chest pain: Code(s): R07.89 - Other chest pain Status: Acute Assessment and Plan: EGD with possible biopsy or dilatation or cautery.
[2022-04-06 13:43] VITALS: BP 108/66; PULSE 62; RESP 21; O2SAT 100
[2022-04-06 13:53] VITALS: BP 121/73; PULSE 65; RESP 16; O2SAT 99
[2022-04-06 14:03] VITALS: BP 117/79; PULSE 57; RESP 15; O2SAT 99
== END 2022-04-06 14:12 | disposition home or self-care (01) ==
PROVIDERS: PCP Nurse Practitioner Family; Visit Provider Internal Medicine Gastroenterology
PROC: 0DJ08ZZ Inspection of Upper Intestinal Tract, Via Natural or Artificial Opening Endoscopic (ICD-10-PCS; CPT 43235; principal; 2022-04-06 13:15)
DX: K21.9 Gastro-esophageal reflux disease without esophagitis (principal); F41.9 Anxiety disorder, unspecified
CPT/HCPCS: 43235; J2704; J7120

== ENCOUNTER 2023-03-20 14:50 | Outpatient (CLI) | payer BC, SELFPAY ==
--- NOTE | ~2023-03-20 | CT_ITS ---
EXAMINATION: CT sinus wo con DATE: 03/20/2023 15:05 INDICATION: Bilateral ear pain. Chronic pansinusitis. TECHNIQUE: Computed tomography (CT) of the paranasal sinuses was performed without contrast. Iterativ e reconstruction technique was employed. Exam dose: 315.40 mGy-cm total exam DLP. COMPARISON: None FINDINGS: Mild rightward bowing of the nasal septum. The nasal turbinates are symmetric and moderatel y prominent in size. There is mild mucoperiosteal thickening of the maxillary ostium on each side but the ostiomeatal unit s are patent. There is minimal focal soft tissue thickening of the right ethmoid air cells. The paranasal sinuses o therwise are normally developed and aerated. The mastoid air cells are normally developed and aerated. IMPRESSION: Mild rightward bowing of nasal septum Mild opacity at the maxillary ostium bilaterally; ostiomeatal units are patent Minimal focal soft tissue thickening right ethmoid; paranasal sinuses and mastoid air cells are other romeo normally aerated Reviewed, dictated and finalized at [facility]. Reviewed, dictated and finalized at location B. [employer] IMPRESSION: Mild rightward bowing of nasal septum Mild opacity at the maxillary ostium bilaterally; ostiomeatal units are patent Minimal focal soft tissue thickening right ethmoid; paranasal sinuses and masto id air cells are otherwise normally aerated
== END 2023-03-20 14:51 ==
LOC: MICIMG 14:51
PROVIDERS: PCP Otolaryngology; Visit Provider Otolaryngology
DX: J32.4 Chronic pansinusitis (principal)
CPT/HCPCS: 70486